=== PATIENT | male | born 1980 | race Caucasian/White ===

== ENCOUNTER 2024-06-27 17:39 | Emergency (ER) | payer SELFPAY ==
[~2024-06-27] VITALS: Ht 165.1 cm; Wt 73.0 kg
[2024-06-27 17:41] VITALS: TEMP 36.8; O2SAT 99
[2024-06-27 22:11] VITALS: BP 125/83; PULSE 85; RESP 14; O2SAT 98
== END 2024-06-27 22:13 | disposition home or self-care (01) ==
LOC: ER 17:39
DX: F10.129 Alcohol abuse with intoxication, unspecified (principal); Y90.9 Presence of alcohol in blood, level not specified
CPT/HCPCS: 99283